=== PATIENT | male | born 1945 | race Two or more races ===

== ENCOUNTER 2020-09-11 15:47 | Inpatient (IN) | payer MEDICARE, OTHER ==
[~2020-09-11] VITALS: Ht 165.1 cm; Wt 66.7 kg
--- NOTE | 2020-09-11 15:53 | NUR ---
The patient is [id number], from home, c/o sudden chest pain radiating to left arm. Patient is alert and oriented x4. The patient denies pain at this time. In room air and denies. Respiration regular and unlabored. Monitor on. Will continue to monitor.The patient is seen by Dr Redmond.
[2020-09-11] MEDS ORDERED: ASPIRIN 325 MG TABLET PO ONE (16:00)
[2020-09-11] MEDS ORDERED: ASPIRIN 325 MG TABLET ONE (16:08)
[2020-09-11 16:13] LABS: BASOPHILS # (AUTO) 0.1 /CMM (0.0-0.2); BASOPHILS % (AUTO) 2.5 % (0.0-2.0); EOSINOPHILS % (AUTO) 3.1 % (0.0-6.0); HEMATOCRIT 42 % (39-51); HEMOGLOBIN 13.9 g/dL (13.5-17.5); LYMPHOCYTES # (AUTO) 0.9 /CMM (0.8-4.8); LYMPHOCYTES % (AUTO) 18.6 % (20.0-44.0); MEAN CORPUSCULAR HGB CONC 33 g/dl (31.0-36.0); MEAN CORPUSCULAR VOLUME 93 fL (80-96); MONOCYTES # (AUTO) 0.5 /CMM (0.1-1.30); MONOCYTES % (AUTO) 9.9 % (2.0-12.0); NEUTROPHILS # (AUTO) 3.3 /CMM (1.8-8.9); NEUTROPHILS % (AUTO) 65.9 % (43.0-81.0); PLATELET COUNT (AUTO) 202 /CMM (150-450); RED BLOOD CELL COUNT(AUTO) 4.47 MIL/uL (4.5-6.0)
[2020-09-11 16:30] LABS: CARBON DIOXIDE 29 mmol/L (21-32); CHLORIDE 101 mmol/L (98-107); CREATININE 1.3 mg/dL (0.6-1.3); GLUCOSE 122 mg/dL (74-106); POTASSIUM 4.3 mmol/L (3.5-5.1); SODIUM SERUM 136 mmol/L (136-145); UREA NITROGEN, BLOOD 24 mg/dL (7-18)
[2020-09-11] MEDS ORDERED: MAGN400T26 PO (16:30)
[2020-09-11] MEDS ORDERED: TAMS-12 PO (16:30)
[2020-09-11] MEDS ORDERED: APIX5TAB PO (16:30)
[2020-09-11] MEDS ORDERED: IRBE150T28 PO (16:30)
[2020-09-11] MEDS ORDERED: UBID100C13 PO (16:30)
[2020-09-11] MEDS ORDERED: DUTA0.5C37 PO (16:30)
[2020-09-11] MEDS ORDERED: ATEN25TA PO (16:30)
[2020-09-11 16:40] LABS: D-DIMER 0.93 mg/L(FEU (0.17-0.50)
[2020-09-11 16:43] LABS: ALANINE AMINOTRANSFERASE 22 U/L (12-78); ALBUMIN 3.4 g/dL (3.4-5.0); ALKALINE PHOSPHATASE 68 U/L (46-116); ASPARTATE AMINOTRANSFERASE 18 U/L (15-37); B-TYPE NATRIURETIC PEPTIDE 290 PG/ML (0-125); BILIRUBIN,DIRECT 0.1 mg/dL (0.0-0.2); BILIRUBIN,TOTAL 0.6 mg/dL (0.2-1.0); TOTAL PROTEIN, SERUM 7.1 g/dL (6.4-8.2)
--- NOTE | 2020-09-11 16:54 | NUR ---
The patient is in bed and resting. Denies pain, denies SOB.
--- NOTE | 2020-09-11 17:00 | NUR ---
Swabed for covid and sent it to the lab.
--- NOTE | 2020-09-11 17:02 | NUR ---
Made Dr Redmond aware that per patient`s son Bennett the patient was diagnosed of having kate internal jagular thrombosis Aug, 2020.
[2020-09-11] MEDS ORDERED: IV NS 0.9% 250 ML IV ONE (17:05)
[2020-09-11] MEDS ORDERED: IOHEXOL-350 100 ML VIAL IV ONE (17:05)
--- NOTE | 2020-09-11 17:09 | NUR ---
The patient taken for CT. Left ER in stable condition.
--- NOTE | 2020-09-11 17:18 | NUR ---
The patient is back from CT.
--- NOTE | 2020-09-11 17:27 | NUR ---
covid antigen negative per lab.
--- NOTE | 2020-09-11 18:00 | NUR ---
Report given to DRAKE Rojas for 309-2.
--- NOTE | 2020-09-11 19:17 | NUR ---
CALLED [facility], PAGED RYLAN RIVERA
[2020-09-11 19:44] VITALS: BP 161/77
--- NOTE | 2020-09-11 19:44 | NUR ---
PATIENT ARRIVED ON THE FLOOR FROM ER VIA TOBI, A/O X4. NO S/S OF DISTRESS NOTED. NO COMPLAIN OF PAIN. CALL LIGHT WITHIN REACH. BED IN LOWEST AND LOCKED POSITION.
--- NOTE | 2020-09-11 19:46 | NUR ---
pt was ttransferred to the third floor under ACLS
[2020-09-11 20:00] VITALS: BP 161/77
[2020-09-11] MEDS ORDERED: ZOLPIDEM TARTRATE 5 MG TABLET PO PRN (20:00)
[2020-09-11] MEDS ORDERED: HYDROCODONE/APAP 5/325MG TABLET PO PRN (20:00)
[2020-09-11] MEDS ORDERED: Z GUARD REMEDY 2 OZ OINT TP PRN (20:00)
[2020-09-11] MEDS ORDERED: ENOXAPARIN SODIUM 40 MG/0.4 ML DISP.SYRIN SQ SCH (20:00)
[2020-09-11] MEDS ORDERED: ONDANSETRON HCL/PF 4 MG/2 ML VIAL IVP PRN (20:00)
[2020-09-11] MEDS: ATORVASTATIN 10 MG TABLET PO SCH (21:34)
[2020-09-11] MEDS: APIXABAN 5 MG TABLET PO SCH (21:34)
[2020-09-12] VITALS: BP 133/56
[2020-09-12] MEDS: ACETAMINOPHEN 325 MG TABLET PO PRN ×2 (01:20→14:55)
[2020-09-12 04:00] VITALS: BP 137/65
[2020-09-12 04:29] LABS: BASOPHILS % (AUTO) 0.9 % (0.0-2.0); HEMATOCRIT 40 % (39-51); HEMOGLOBIN 13.3 g/dL (13.5-17.5); LYMPHOCYTES % (AUTO) 17.8 % (20.0-44.0); MEAN CORPUSCULAR HGB CONC 34 g/dl (31.0-36.0); MEAN CORPUSCULAR VOLUME 93 fL (80-96); MONOCYTES # (AUTO) 0.8 /CMM (0.1-1.30); MONOCYTES % (AUTO) 14.5 % (2.0-12.0); NEUTROPHILS # (AUTO) 3.4 /CMM (1.8-8.9); NEUTROPHILS % (AUTO) 62.8 % (43.0-81.0); PLATELET COUNT (AUTO) 190 /CMM (150-450); RED BLOOD CELL COUNT(AUTO) 4.26 MIL/uL (4.5-6.0); WHITE BLOOD COUNT (AUTO) 5.4 K/uL (4.3-11.0)
[2020-09-12 04:44] LABS: CALCIUM, SERUM 8.8 mg/dL (8.5-10.1); CREATININE 1.2 mg/dL (0.6-1.3); MAGNESIUM 2.1 mg/dL (1.8-2.4); PHOSPHORUS 3.9 mg/dL (2.5-4.9)
--- NOTE | 2020-09-12 05:23 | NUR ---
FISHER CLAM CLOSING NOTES: PATIENT IN BED ,ASLEEP, NO S/S OF DISTRESS NOTED. CALL LIGHT WITHIN REACH. BED ALARM ON. BED IN LOWEST AND LOCKED POSITION. NO COMPLAIN OF CHEST PAIN. RESTED THROUGHOUT THE NIGHT.
--- NOTE | 2020-09-12 07:30 | NUR ---
RN OPENING NOTE PT LAYING IN BED IN SEMIFOWLER'S A/Ox4, BREATHING ON RA SPO2 OF 95%, NO SIGNS OF RESP DISTRESS OR SOB, PT DENIES PAIN. PT AMBULATORY WITH ASSIST, USES URINAL, SKIN INTACT. LT AC #18 FLUSHED, PATENT, SL WITH NO SIGNS OF INFECTION OR INFILTRATION. ALL PT SAFETY MEASURES IN PLACE, WILL CONT TO MONITOR
[2020-09-12 08:00] VITALS: BP 147/67
[2020-09-12] MEDS: DUTASTERIDE (0.5 MG) 0.5 MG CAPSULE PO SCH (09:00)
[2020-09-12] MEDS: ASPIRIN EC 81 MG TABLET.DR PO SCH (09:05)
[2020-09-12] MEDS: TAMSULOSIN 0.4 MG CAP.SR.24H PO SCH (09:05)
[2020-09-12] MEDS: MAGNESIUM OXIDE 400 MG TABLET PO SCH (09:05)
[2020-09-12] MEDS: LOSARTAN POTASSIUM 50 MG TABLET PO SCH (09:06)
[2020-09-12] MEDS: ATENOLOL 25 MG TABLET PO SCH (09:06)
[2020-09-12] MEDS: APIXABAN 5 MG TABLET PO SCH ×2 (09:07→17:35)
--- NOTE | 2020-09-12 09:41 | NUR ---
RN NOTE PT ALLERGY TO SHELLFISH, INFORMED BILL FROM RADIOLOGY REGARDING UPCOMING CT/ANGIO OF THE HEART WITH CONTRAST
[2020-09-12] MEDS ORDERED: CT SWABBABLE VALVE TRANS SET 1 EA INFUS.SET MC ONE (10:21)
[2020-09-12] MEDS ORDERED: IOHEXOL-350 100 ML VIAL IV ONE ×2 (10:21→10:40)
[2020-09-12] MEDS ORDERED: IV NS 0.9% 250 ML IV ONE (10:21)
[2020-09-12] MEDS ORDERED: NITROGLYCERIN 0.4 MG/TAB BOTTLE SL ONE (10:30)
--- NOTE | 2020-09-12 10:35 | NUR ---
CTA PROCEDURE WELL TOLERATED BY THE PT. AAOX4, NOT IN RESPIRATORY DISTRESS, V/S STABLE, KEPT RESTED AND COMFORTABLE. REPORT GIVEN TO DRAKE AZEVEDO FOR VANESSA.
[2020-09-12] MEDS ORDERED: METOPROLOL TARTRATE INJ 5 MG/5 ML AMPUL ONE (10:39)
[2020-09-12] MEDS: METOPROLOL TARTRATE INJ 5 MG/5 ML AMPUL IVP PRN ×2 (10:45→10:50)
--- NOTE | 2020-09-12 10:45 | NUR ---
RN NOTE PT RETURNED FROM CTA IN STABLE CONDITION
[2020-09-12 12:00] VITALS: BP 129/61
[2020-09-12 16:00] VITALS: BP 143/65
--- NOTE | 2020-09-12 18:32 | NUR ---
RN CLOSING NOTE NO CHANGES TO PT STATUS DURING SHIFT. PT TOLERATED CTA WELL AND WILL BE RE-EVALUATED TOMORROW. PT BREATHING ON RA SPO2 96% WITH NO SIGNS OF RESP DISTRESS OR SOB. PT DENIES PAIN. ALL PT SAFETY PRECAUTIONS IN PLACE. WILL ENDORSE VANESSA TO ONCOMING RN
--- NOTE | 2020-09-12 19:20 | NUR ---
RN opening notes Received Pt from morning nurse. Pt is sitting in bed comfortably watching TV. Pt is alert and orientedx4. Pt speaks [place] and able to make needs known. Respiration is normal in room air. No SOB. No S/S of distress noted. IV site at LAc# 18 is clean, intact, flushes well and SL. Safety precautions is maintained. Bed at low position, brakes locked, side rails upX2, urinal at the bed side and call light is within reach. Will continue to monitor.
[2020-09-12 20:00] VITALS: BP 139/64
[2020-09-12] MEDS: ATORVASTATIN 10 MG TABLET PO SCH (21:06)
[2020-09-13 06:42] LABS: BASOPHILS % (AUTO) 0.7 % (0.0-2.0); EOSINOPHILS % (AUTO) 6.6 % (0.0-6.0); HEMATOCRIT 40 % (39-51); HEMOGLOBIN 13.5 g/dL (13.5-17.5); LYMPHOCYTES % (AUTO) 21.4 % (20.0-44.0); MEAN CORPUSCULAR HGB CONC 34 g/dl (31.0-36.0); MEAN CORPUSCULAR VOLUME 95 fL (80-96); MONOCYTES # (AUTO) 0.7 /CMM (0.1-1.30); NEUTROPHILS # (AUTO) 2.7 /CMM (1.8-8.9); NEUTROPHILS % (AUTO) 56.3 % (43.0-81.0); PLATELET COUNT (AUTO) 195 /CMM (150-450); RED BLOOD CELL COUNT(AUTO) 4.15 MIL/uL (4.5-6.0); WHITE BLOOD COUNT (AUTO) 4.7 K/uL (4.3-11.0)
--- NOTE | 2020-09-13 06:48 | NUR ---
RN closing notes Pt is resting in bed comfortably. Pt is alert and orientedx4. Pt speaks Citizen [place] and able to make needs known. Respiration is normal in room air. No SOB. No S/S of distress noted. VS is stable. Routine meds were given as ordered. IV site at LAc# 18 is clean, intact, flushes well and SL. Kept Pt clean, dry and comfortable. All needs met and attended. Safety precautions is maintained. Bed at low position, brakes locked, side rails upX2, urinal at the bed side and call light is within reach. Will endorse to morning nurse for VANESSA.
[2020-09-13 07:06] LABS: CALCIUM, SERUM 8.9 mg/dL (8.5-10.1); CREATININE 1.2 mg/dL (0.6-1.3); PHOSPHORUS 4.3 mg/dL (2.5-4.9); POTASSIUM 4.4 mmol/L (3.5-5.1)
--- NOTE | 2020-09-13 07:45 | NUR ---
ms rn received on bed, awake,alert,oriented x4,not in any form of distress, respirations even and unlabored,no sob noted,lungs are clear abdomen soft,positive bowel sound denies pain at this time, will monitor patient's condition.
[2020-09-13 08:00] VITALS: BP 150/69
--- NOTE | 2020-09-13 08:00 | NUR ---
ms romero breakfast served,due meds given,tolerated well.
--- NOTE | 2020-09-13 08:10 | NUR ---
ms rn was seen by dr. franklin, its ok to go home today, will wait for medical doctor to d/c him.
[2020-09-13] MEDS: ATENOLOL 25 MG TABLET PO SCH (09:00)
[2020-09-13] MEDS: MAGNESIUM OXIDE 400 MG TABLET PO SCH (09:24)
[2020-09-13] MEDS: TAMSULOSIN 0.4 MG CAP.SR.24H PO SCH (09:24)
[2020-09-13] MEDS: ASPIRIN EC 81 MG TABLET.DR PO SCH (09:24)
[2020-09-13 09:25] VITALS: BP 150/69
[2020-09-13] MEDS: LOSARTAN POTASSIUM 50 MG TABLET PO SCH (09:25)
[2020-09-13] MEDS: APIXABAN 5 MG TABLET PO SCH (09:26)
[2020-09-13] MEDS: DUTASTERIDE (0.5 MG) 0.5 MG CAPSULE PO SCH (09:30)
--- NOTE | 2020-09-13 10:20 | NUR ---
ms rn was seen by carina hu, w/ order to go home today,all needs attended.
[2020-09-13] MEDS ORDERED: ALPR0.25 PO (10:51)
--- NOTE | 2020-09-13 12:30 | NUR ---
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
== END 2020-09-13 12:45 | disposition home or self-care (01) | DRG 303 ==
LOC: ER 15:47 → TELE 18:02 → MED 09-12 15:42
PROVIDERS: ADMIT Nurse Practitioner Acute Care; ATTEND Nurse Practitioner Acute Care
DX: I25.10 Atherosclerotic heart disease of native coronary artery without angina pectoris (principal); D68.59 Other primary thrombophilia; C34.11 Malignant neoplasm of upper lobe, right bronchus or lung; I10 Essential (primary) hypertension; N40.0 Benign prostatic hyperplasia without lower urinary tract symptoms; Z86.718 Personal history of other venous thrombosis and embolism; Z79.01 Long term (current) use of anticoagulants; Z20.822 Contact with and (suspected) exposure to COVID-19; Z86.73 Personal history of transient ischemic attack (TIA), and cerebral infarction without residual deficits; Z79.899 Other long term (current) drug therapy; E78.5 Hyperlipidemia, unspecified; Z87.891 Personal history of nicotine dependence; Z95.5 Presence of coronary angioplasty implant and graft; Z92.21 Personal history of antineoplastic chemotherapy; Z92.3 Personal history of irradiation; N13.9 Obstructive and reflux uropathy, unspecified; R79.89 Other specified abnormal findings of blood chemistry
CPT/HCPCS: 36415; 71045-TC; 75574; 80048-TC; 80061-TC; 80076-TC; 83735-TC; 83880; 84100-TC; 84484-TC; 85025-TC; 85378-TC; 85730-TC; 87081-TC; 93307-TC; C9803; G0378; J3490; J7050; Q9967